=== PATIENT | male | born 1965 | race Caucasian/White ===

== ENCOUNTER 2020-04-07 10:44 | Outpatient (CLI) | payer OTHER, SELFPAY ==
--- NOTE | ~2020-04-07 | XR_ITS ---
XR lumbar spine 2-3V 04/07/2020 11:13 Indication: Low back pain Procedure: 3 views lumbar spine Comparison: No prior studies for comparison. Findings: There is disc narrowing at L5-S1. Vertebral body heights are maintained. There are facet de generative changes at L5-S1. Pedicles intact. Impression: 1: Mild lumbar spondylosis. Reviewed, dictated and finalized at location B. [employer] MEDICAL DIRECTOR Impression: 1: Mild lumbar spondylosis.
== END 2020-04-07 10:45 | disposition home or self-care (01) ==
PROVIDERS: PCP Internal Medicine; Visit Provider Internal Medicine
DX: M47.817 Spondylosis without myelopathy or radiculopathy, lumbosacral region (principal)
CPT/HCPCS: 72100

== ENCOUNTER 2022-05-29 08:00 | Outpatient (NON) | payer OTHER, SELFPAY | END 2022-05-29 08:01 | disposition home or self-care (01) | LOC: ANHLAB 05-30 08:15 | PROVIDERS: PCP Internal Medicine; Visit Provider Internal Medicine Gastroenterology | DX: Z12.11 Encounter for screening for malignant neoplasm of colon (principal) | CPT/HCPCS: 88305 ==

== ENCOUNTER 2022-05-29 10:57 | Day surgery (SDC) | payer OTHER, SELFPAY ==
[2022-03-27 08:14] VITALS: BMI 37.2
[2022-05-21 14:31] VITALS: BMI 37.8
--- NOTE | 2022-05-29 09:36 | P.PNAN_ITS ---
Anes - Initial Pre Proc Eval Procedure: Operation Date: 05/29/22 13:00 Proposed Procedures p Screening Colonoscopy - Jony Kimbrough MD Date/Time: 05/29/22 09:36 Surgeon: Jony Kimbrough MD Pre Op Diagnosis: Neoplasm Screening Patient Data Age: 57 Gender: M Height: 1.73 m Weight: 113 kg Allergies Allergy/AdvReac Type Severity Reaction Status Date / Time No Known Allergies Allergy Verified 05/29/22 11:42 Home Medications Medication Instructions Recorded Confirmed Type tadalafil 20 mg tablet (Cialis) 20 mg PO DAILY PRN sexual activity 09/30/19 05/29/22 Rx #90 tabs testosterone 20.25 mg/1.25 gram 2 pump topical DAILY #225 grams 12/14/21 05/29/22 Rx (1.62 %) transdermal gel pump aspirin 81 mg tablet,delayed 81 mg PO DAILY 02/28/22 05/29/22 History release (Adult Low Dose Aspirin) empagliflozin 10 mg-linagliptin 5 See Rx Instructions .Route 04/30/22 05/29/22 Rx mg tablet (Glyxambi) .COMPLEX #90 tabs losartan 100 See Rx Instructions .Route 05/01/22 05/29/22 Rx mg-hydrochlorothiazide 25 mg tablet .COMPLEX #90 tabs Patient hx anesthesia problems: none Family hx anesthesia problems: none Results Review: All pre-operative results and documents have been reviewed as part of the pre- operative evaluation. [facility] Past Medical History Medical History (Updated 05/29/22 @ 09:37 by Fan Ceja MD) Benign essential hypertension Controlled type 2 diabetes mellitus without complication Obesity ULICES (obstructive sleep apnea) Family History Family History Mother Family history of diabetes mellitus in first degree relative Grandparent Family history of emphysema Social History Social History Smoking status: Current every day smoker Tobacco type: e-cigarettes/vaping Alcohol intake: current Substance use: never Substance use type: does not use Living arrangements: with family Spiritual care concerns: No Anes - Eval Final PreProcedure Day of Procedure 05/29/22 09:36 Patient weight: obese Heart: regular rate and rhythm Lungs: clear to auscultation and normal air movement Airway: Mallampati scale class II Neurological: alert and oriented Last oral intake: >/= 8 hours ASA classification: III Emergent: no Anesthetic plan: proceed Anesthesia type and monitoring: general GIVS Results Review: All pre-operative results and documents have been reviewed as part of the pre- operative evaluation. Informed Consent: The patient's anesthetic plan and its attendant risks and benefits were discussed with the patient/family/POA. Questions were solicited and answers provided to the satisfaction of the patient/family/POA.
[2022-05-29 11:35] VITALS: BP 128/100; PULSE 88; RESP 16; TEMP 36.4; O2SAT 97
[2022-05-29 11:53] LABS: Glucose Point of Care 130 mg/dl (65-105)
[2022-05-29] MEDS: LACTATED RINGERS 1,000 ML 150 ML IV CONT (12:00)
--- NOTE | 2022-05-29 12:17 | PM.HPGS ---
History of Present Illness History of Present Illness Consent: Risks, benefits, and alternatives have been discussed and questions answered. Patient agrees to proceed with procedure. Chief complaint: Neoplasm Screening Narrative: Jason Carrasco is a 57 year old male here for first screening colonoscopy Review of Systems Constitutional: Constitutional: Denies headache(s) and Denies weakness Eyes: Eyes: Denies blurry vision ENT: Reports Normal hearing present, Denies headache(s) and Denies neck pain Cardiovascular: Cardiovascular: Denies chest pain and Denies dyspnea Respiratory: Respiratory: Denies dyspnea Gastrointestinal: Gastrointestinal: Reports no additional gastrointestinal complaints Genitourinary: Genitourinary: Denies dysuria Musculoskeletal: Musculoskeletal: Denies neck pain Integumentary/Breasts: Skin/Breast: Denies dry skin Neurologic: Reports Normal hearing present, Denies headache(s) and Denies weakness Psychiatric: Psychiatric: Denies anxiety Endocrine: Endocrine: Denies change in body appearance Hematologic/Lymphatic: Hematologic/Lymphatic: Denies easy bleeding Allergic/Immunologic: Allergic/Immunologic: Denies urticaria PMF Past Medical History Medical History (Updated 05/29/22 @ 09:37 by Fan Ceja MD) Benign essential hypertension Controlled type 2 diabetes mellitus without complication Obesity ULICES (obstructive sleep apnea) Family History Family History Mother Family history of diabetes mellitus in first degree relative Grandparent Family history of emphysema Social History Social History Smoking status: Current every day smoker Tobacco type: e-cigarettes/vaping Alcohol intake: current Substance use: never Substance use type: does not use Living arrangements: with family Spiritual care concerns: No Meds Home Medications and Allergies Home Medications Medication Instructions Recorded Confirmed Type tadalafil 20 mg tablet (Cialis) 20 mg PO DAILY PRN sexual activity 09/30/19 05/29/22 Rx #90 tabs testosterone 20.25 mg/1.25 gram 2 pump topical DAILY #225 grams 12/14/21 05/29/22 Rx (1.62 %) transdermal gel pump aspirin 81 mg tablet,delayed 81 mg PO DAILY 02/28/22 05/29/22 History release (Adult Low Dose Aspirin) empagliflozin 10 mg-linagliptin 5 See Rx Instructions .Route 04/30/22 05/29/22 Rx mg tablet (Glyxambi) .COMPLEX #90 tabs losartan 100 See Rx Instructions .Route 05/01/22 05/29/22 Rx mg-hydrochlorothiazide 25 mg tablet .COMPLEX #90 tabs Allergies Allergy/AdvReac Type Severity Reaction Status Date / Time No Known Allergies Allergy Verified 05/29/22 11:42 Vital Signs Vital Signs - 24 hr 05/29/22 11:35 Temperature 97.5 F L Pulse Rate 88 Respiratory Rate 16 Blood Pressure 128/100 H Pulse Oximetry 97 Oxygen Delivery Room Air Exam Const: General: comfortable and no acute distress HENMT: Face/Nose/Sinus: Normal nares present Eyes: General: appearance normal, both eyes and all related structures Neck: Neck: no JVD Resp: Auscultation: clear to auscultation bilaterally Cardio: Rate: regular rate Rhythm: regular rhythm GI: Inspection: non-distended GI Palp: Yes Soft to palpation Skin: General skin exam: normal color Neuro: General: gait normal Speech: normal speech Extrem: General: normal to inspection Psych: Mental Status: mental status grossly normal Assessment and Plan Assessment and plan (1) Screening for colon cancer: Code(s): Z12.11 - Encounter for screening for malignant neoplasm of colon Status: Acute Assessment and Plan: colonoscopy
[2022-05-29 12:40] VITALS: BP 104/66; PULSE 90; RESP 20; O2SAT 97
[2022-05-29 12:50] VITALS: BP 103/60; PULSE 83; RESP 18; O2SAT 97
--- NOTE | 2022-05-29 12:58 | SUR.PHASEII ---
PT AWAKE AND ALERT. EATING AND DRINKING. TEXTING WITH SPOUSE. SHE IS ON HER WAY BACK TO [facility]. PT DENIES PAIN.
[2022-05-29 13:00] VITALS: BP 113/70; PULSE 82; RESP 18; O2SAT 98
--- NOTE | 2022-05-29 13:52 | WPDANESPN ---
Anes - Prog Note Post-Op Date/Time: 05/29/22 13:52 Cardiovascular status: normal Respiratory status: normal Airway patency: baseline Mental status: baseline Post-Op hydration status: normal Vital Signs: Last Vital Signs Temp 36.4 C L 05/29/22 11:35 Pulse 82 05/29/22 13:00 Resp 18 05/29/22 13:00 BP 113/70 05/29/22 13:00 Pulse Ox 98 05/29/22 13:00 O2 Del Method Room Air 05/29/22 13:00 Pain Score (VAS): 0 I/O: Intake & Output 05/28/22 05/29/22 05/29/22 23:59 07:59 15:59 Intake Total 350 Balance 350 05/29/22 11:51 POC Capillary Glucose 130 H Post-procedural complaints: none Patient Feedback: Patient satisfied with anesthetic care.
== END 2022-05-29 13:14 | disposition home or self-care (01) ==
PROVIDERS: PCP Internal Medicine; Visit Provider Internal Medicine Gastroenterology
PROC: 0DJD8ZZ Inspection of Lower Intestinal Tract, Via Natural or Artificial Opening Endoscopic (ICD-10-PCS; CPT 45378; principal; 2022-05-29 13:00)
DX: Z12.11 Encounter for screening for malignant neoplasm of colon (principal)
CPT/HCPCS: 45385

== ENCOUNTER 2023-03-24 01:35 | Day surgery (SDC) | payer OTHER, SELFPAY ==
[2023-03-10 11:42] VITALS: BMI 36.5
--- NOTE | 2023-03-21 10:49 | SUR.PREOP ---
Patient called regarding upcoming procedure. Reviewed preop instructions, appointment times, and procedure prep.
[2023-03-24 08:50] LABS: Glucose Point of Care 121 mg/dl (65-105)
[2023-03-24 08:51] VITALS: BP 115/80; PULSE 77; RESP 18; TEMP 36.7; O2SAT 99; BMI 36.5
[2023-03-24] MEDS: LACTATED RINGERS 1,000 ML 150 ML IV CONT (09:03)
--- NOTE | 2023-03-24 09:41 | PM.HPGS ---
History of Present Illness History of Present Illness Consent: Risks, benefits, and alternatives have been discussed and questions answered. Patient agrees to proceed with procedure. Chief complaint: dysphagia Narrative: Jason Carrasco is a 57 year old male with dysphagia- few occasions feeling food is getting stuck, several times ago had to call 911 but eventually passed down. Never had egd Review of Systems Constitutional: Constitutional: Denies headache(s) and Denies weakness Eyes: Eyes: Denies blurry vision ENT: Reports Normal hearing present, Denies headache(s) and Denies neck pain Cardiovascular: Cardiovascular: Denies chest pain and Denies dyspnea Respiratory: Respiratory: Denies dyspnea Gastrointestinal: Gastrointestinal: Reports no additional gastrointestinal complaints Genitourinary: Genitourinary: Denies dysuria Musculoskeletal: Musculoskeletal: Denies neck pain Integumentary/Breasts: Skin/Breast: Denies dry skin Neurologic: Reports Normal hearing present, Denies headache(s) and Denies weakness Psychiatric: Psychiatric: Denies anxiety Endocrine: Endocrine: Denies change in body appearance Hematologic/Lymphatic: Hematologic/Lymphatic: Denies easy bleeding Allergic/Immunologic: Allergic/Immunologic: Denies urticaria PMFSH Past Medical History Medical History Benign essential hypertension Controlled type 2 diabetes mellitus without complication Obesity ULICES (obstructive sleep apnea) Family History Family History Mother Family history of diabetes mellitus in first degree relative Grandparent Family history of emphysema Social History Social History Smoking status: Current every day smoker Tobacco type: e-cigarettes/vaping Additional smoking assessment comments: Smoked Alcohol intake: current Drinks per week: 5 Alcohol use details: occasional beer Substance use: never Substance use type: does not use Living arrangements: other Additional living arrangements comments: With sp Spiritual care concerns: No Meds Home Medications and Allergies Home Medications Medication Instructions Recorded Confirmed Type tadalafil 20 mg tablet (Cialis) 20 mg PO DAILY PRN sexual activity 09/30/19 03/24/23 Rx #90 tabs testosterone 2 pump topical DAILY #225 grams 12/14/21 03/24/23 Rx aspirin 81 mg tablet,delayed 81 mg PO DAILY 02/28/22 03/24/23 History release (Adult Low Dose Aspirin) empagliflozin 10 mg-linagliptin 5 See Rx Instructions .Route 04/30/22 03/24/23 Rx mg tablet (Glyxambi) .COMPLEX #90 tabs losartan 100 See Rx Instructions .Route 05/01/22 03/24/23 Rx mg-hydrochlorothiazide 25 mg tablet .COMPLEX #90 tabs escitalopram oxalate 10 mg tablet 10 mg PO DAILY #30 tabs 03/13/23 03/24/23 Rx Allergies Allergy/AdvReac Type Severity Reaction Status Date / Time No Known Allergies Allergy Verified 03/24/23 08:49 Vital Signs Vital Signs - 24 hr 03/24/23 08:51 Temperature 98.0 F Pulse Rate 77 Respiratory Rate 18 Blood Pressure 115/80 Pulse Oximetry 99 Oxygen Delivery Room Air Exam Const: General: comfortable and no acute distress HENMT: Face/Nose/Sinus: Normal nares present Eyes: General: appearance normal, both eyes and all related structures Neck: Neck: no JVD Resp: Auscultation: clear to auscultation bilaterally Cardio: Rate: regular rate Rhythm: regular rhythm GI: Inspection: non-distended GI Palp: Yes Soft to palpation Skin: General skin exam: normal color Neuro: General: gait normal Speech: normal speech Extrem: General: normal to inspection Psych: Mental Status: mental status grossly normal Assessment and Plan Assessment and plan (1) Dysphagia: Code(s): R13.10 - Dysphagia, unspecified Status: Acute Assessment and Plan:
--- NOTE | 2023-03-24 09:44 | WPDANESEPPF ---
Anes - Initial Pre Proc Eval Procedure: Operation Date: 03/24/23 10:00 Proposed Procedures p Esophagogastroduodenoscopy - Jony Kimbrough MD Date/Time: 03/24/23 09:44 Surgeon: Jony Kimbrough MD Pre Op Diagnosis: dysphagia Patient Data Age: 57 Gender: M Height: 1.73 m Weight: 109 kg Last Vital Signs Temp 98.0 F 03/24/23 08:51 Pulse 77 03/24/23 08:51 Resp 18 03/24/23 08:51 BP 115/80 03/24/23 08:51 Pulse Ox 99 03/24/23 08:51 O2 Del Method Room Air 03/24/23 08:51 Allergies Allergy/AdvReac Type Severity Reaction Status Date / Time No Known Allergies Allergy Verified 03/24/23 08:49 Home Medications Medication Instructions Recorded Confirmed Type tadalafil 20 mg tablet (Cialis) 20 mg PO DAILY PRN sexual activity 09/30/19 03/24/23 Rx #90 tabs testosterone 2 pump topical DAILY #225 grams 12/14/21 03/24/23 Rx aspirin 81 mg tablet,delayed 81 mg PO DAILY 02/28/22 03/24/23 History release (Adult Low Dose Aspirin) empagliflozin 10 mg-linagliptin 5 See Rx Instructions .Route 04/30/22 03/24/23 Rx mg tablet (Glyxambi) .COMPLEX #90 tabs losartan 100 See Rx Instructions .Route 05/01/22 03/24/23 Rx mg-hydrochlorothiazide 25 mg tablet .COMPLEX #90 tabs escitalopram oxalate 10 mg tablet 10 mg PO DAILY #30 tabs 03/13/23 03/24/23 Rx Laboratory Tests 03/24/23 08:47 POC Capillary Glucose 121 H mg/dl (65-105) Patient hx anesthesia problems: none Family hx anesthesia problems: none Results Review: All pre-operative results and documents have been reviewed as part of the pre-operative evaluation. [facility] Past Medical History Medical History Benign essential hypertension Controlled type 2 diabetes mellitus without complication Obesity ULICES (obstructive sleep apnea) Family History Family History Mother Family history of diabetes mellitus in first degree relative Grandparent Family history of emphysema Social History Social History Smoking status: Current every day smoker Tobacco type: e-cigarettes/vaping Additional smoking assessment comments: Smoked Alcohol intake: current Drinks per week: 5 Alcohol use details: occasional beer Substance use: never Substance use type: does not use Living arrangements: other Additional living arrangements comments: With sp Spiritual care concerns: No Anes - Eval Final PreProcedure Day of Procedure 03/24/23 09:44 Patient weight: obese Heart: regular rate and rhythm Lungs: clear to auscultation Airway: Mallampati scale class II Neurological: alert and oriented Last oral intake: >/= 8 hours ASA classification: III Emergent: no Anesthetic plan: proceed Anesthesia type and monitoring: general GIVS and standard monitoring Results Review: All pre-operative results and documents have been reviewed as part of the pre-operative evaluation. Informed Consent: The patient's anesthetic plan and its attendant risks and benefits were discussed with the patient/family/POA. Questions were solicited and answers provided to the satisfaction of the patient/family/POA.
[2023-03-24 09:57] VITALS: BP 103/85; PULSE 88; RESP 19; O2SAT 98
--- NOTE | 2023-03-24 10:02 | WPDANESEPPF ---
Anes - Initial Pre Proc Eval Procedure: Operation Date: 03/24/23 10:00 Proposed Procedures p Esophagogastroduodenoscopy - Jony Kimbrough MD Date/Time: 03/24/23 10:02 Surgeon: Jony Kimbrough MD Pre Op Diagnosis: dysphagia Patient Data Age: 57 Gender: M Height: 1.73 m Weight: 109 kg Last Vital Signs Temp 98.0 F 03/24/23 08:51 Pulse 77 03/24/23 08:51 Resp 18 03/24/23 08:51 BP 115/80 03/24/23 08:51 Pulse Ox 99 03/24/23 08:51 O2 Del Method Room Air 03/24/23 08:51 Allergies Allergy/AdvReac Type Severity Reaction Status Date / Time No Known Allergies Allergy Verified 03/24/23 08:49 Home Medications Medication Instructions Recorded Confirmed Type tadalafil 20 mg tablet (Cialis) 20 mg PO DAILY PRN sexual activity 09/30/19 03/24/23 Rx #90 tabs testosterone 2 pump topical DAILY #225 grams 12/14/21 03/24/23 Rx aspirin 81 mg tablet,delayed 81 mg PO DAILY 02/28/22 03/24/23 History release (Adult Low Dose Aspirin) empagliflozin 10 mg-linagliptin 5 See Rx Instructions .Route 04/30/22 03/24/23 Rx mg tablet (Glyxambi) .COMPLEX #90 tabs losartan 100 See Rx Instructions .Route 05/01/22 03/24/23 Rx mg-hydrochlorothiazide 25 mg tablet .COMPLEX #90 tabs escitalopram oxalate 10 mg tablet 10 mg PO DAILY #30 tabs 03/13/23 03/24/23 Rx Laboratory Tests 03/24/23 08:47 POC Capillary Glucose 121 H mg/dl (65-105) Patient hx anesthesia problems: none Family hx anesthesia problems: none Results Review: All pre-operative results and documents have been reviewed as part of the pre-operative evaluation. [facility] Past Medical History Medical History Benign essential hypertension Controlled type 2 diabetes mellitus without complication Obesity ULICES (obstructive sleep apnea) Family History Family History Mother Family history of diabetes mellitus in first degree relative Grandparent Family history of emphysema Social History Social History Smoking status: Current every day smoker Tobacco type: e-cigarettes/vaping Additional smoking assessment comments: Smoked Alcohol intake: current Drinks per week: 5 Alcohol use details: occasional beer Substance use: never Substance use type: does not use Living arrangements: other Additional living arrangements comments: With sp Spiritual care concerns: No Anes - Eval Final PreProcedure Day of Procedure 03/24/23 10:02 Patient weight: obese Heart: regular rate and rhythm Lungs: clear to auscultation Airway: Mallampati scale class II Neurological: alert and oriented Last oral intake: >/= 8 hours ASA classification: III Emergent: no Anesthetic plan: proceed Anesthesia type and monitoring: general GIVS and standard monitoring Results Review: All pre-operative results and documents have been reviewed as part of the pre-operative evaluation. Informed Consent: The patient's anesthetic plan and its attendant risks and benefits were discussed with the patient/family/POA. Questions were solicited and answers provided to the satisfaction of the patient/family/POA.
[2023-03-24 10:07] VITALS: BP 111/75; PULSE 82; RESP 20; O2SAT 95
[2023-03-24 10:17] VITALS: BP 113/75; PULSE 81; RESP 18; O2SAT 95
== END 2023-03-24 10:26 | disposition home or self-care (01) ==
PROVIDERS: PCP Nurse Practitioner; Visit Provider Internal Medicine Gastroenterology
PROC: 0DJ08ZZ Inspection of Upper Intestinal Tract, Via Natural or Artificial Opening Endoscopic (ICD-10-PCS; CPT 43235; principal; 2023-03-24 10:00)
DX: K29.50 Unspecified chronic gastritis without bleeding (principal); K22.2 Esophageal obstruction; K44.9 Diaphragmatic hernia without obstruction or gangrene; I10 Essential (primary) hypertension; E11.9 Type 2 diabetes mellitus without complications; G47.33 Obstructive sleep apnea (adult) (pediatric); F17.290 Nicotine dependence, other tobacco product, uncomplicated; Z79.82 Long term (current) use of aspirin; E66.9 Obesity, unspecified; Z68.36 Body mass index [BMI] 36.0-36.9, adult
CPT/HCPCS: 43249; 43239; 82948; 88305; C1726; J2704; J7120

== ENCOUNTER 2023-09-14 10:05 | Emergency (ER) | payer OTHER, SELFPAY ==
--- NOTE | 2023-09-14 10:10 | ED.GENADULT ---
HPI - General Adult General Chief complaint: Skin/Abscess/Foreign Body Stated complaint: Poison Gabriella Time Seen by Provider: 09/14/23 10:10 Source: patient, RN notes reviewed and old records reviewed Mode of arrival: ambulatory Limitations: no limitations History of Present Illness HPI narrative: 58-year-old man to [facility] with complaint of diffuse rash on bilateral arms, abdomen, anterior neck, bilateral lower extremities for 5 days. Patient endorses potential exposure to poison sumac. Patient has been attempting to treat at home with Benadryl and calamine lotion with little relief. Patient endorses history of diabetes, hypertension and states he is currently being treated for cellulitis of left arm. patient denies rash to face, swelling mouth, shortness of breath, cough. Related Data Home Medications Medication Instructions Recorded Confirmed aspirin 81 mg tablet,delayed 81 mg PO DAILY 02/28/22 09/14/23 release (Adult Low Dose Aspirin) cephalexin 500 mg capsule 500 mg PO Q8H 09/14/23 09/14/23 empagliflozin 10 mg-linagliptin 5 1 tablet PO DAILY 09/14/23 09/14/23 mg tablet (Glyxambi) Allergies Allergy/AdvReac Type Severity Reaction Status Date / Time No Known Allergies Allergy Verified 09/14/23 10:27 Review of Systems Review of Systems: All systems reviewed & are unremarkable except as noted in HPI and below Constitutional: Constitutional: Reports no additional constitutional complaints Eyes: Eyes: Reports no additional eye complaints ENT: Reports system reviewed and no additional complaints, except as documented Cardiovascular: Cardiovascular: Reports no additional cardiovascular complaints, Denies chest pain and Denies dyspnea Respiratory: Respiratory: Reports no additional respiratory complaints, Denies cough and Denies dyspnea Musculoskeletal: Musculoskeletal: Reports no additional musculoskeletal complaints Integumentary/Breasts: Skin/Breast: Reports rash Neurologic: Reports system reviewed and no additional complaints, except as documented Psychiatric: Psychiatric: Reports no additional psychiatric complaints [facility] Past Medical History Medical History Benign essential hypertension Controlled type 2 diabetes mellitus without complication Obesity ULICES (obstructive sleep apnea) Family History Family History Mother Family history of diabetes mellitus in first degree relative Grandparent Family history of emphysema Social History Social History Smoking status: Current every day smoker Tobacco type: e-cigarettes/vaping Additional smoking assessment comments: Smoked Alcohol intake: current Drinks per week: 5 Alcohol use details: occasional beer Substance use: never Substance use type: does not use Living arrangements: other Additional living arrangements comments: With sp Spiritual care concerns: No Comments At the time of my signature, I reviewed and agree with the nursing past medical, surgical, social, and family history. There is no relevant family history pertinent to the patient complaint. Exam Const: General: cooperative, no acute distress, alert, uncomfortable, well groomed and well nourished Nutritional Appearance: well nourished Orientation/consciousness: patient oriented x3 Limitations: no limitations HENMT: Head: normal to inspection Ears: external ears normal Face/Nose/Sinus: Normal external nose present, Normal nares present, normal facial exam, No erythema and No edema Face and sinus: normal facial exam, no erythema and no edema Mouth: Yes Normal oral and palatal mucosa present Eyes: General: appearance normal, both eyes and all related structures Neck: Neck: normal visual inspection, full ROM and no meningeal signs Lymphatic: no lymphadenopathy noted and no l
[2023-09-14 10:12] VITALS: BP 134/85; PULSE 94; RESP 16; TEMP 36.4; O2SAT 97
== END 2023-09-14 10:47 | disposition home or self-care (01) ==
PROVIDERS: Emergency Provider Nurse Practitioner Family
DX: L25.9 Unspecified contact dermatitis, unspecified cause (principal); F17.290 Nicotine dependence, other tobacco product, uncomplicated; I10 Essential (primary) hypertension; E11.9 Type 2 diabetes mellitus without complications; E66.9 Obesity, unspecified; Z68.37 Body mass index [BMI] 37.0-37.9, adult; Z79.82 Long term (current) use of aspirin
CPT/HCPCS: 99213; G0463

== ENCOUNTER 2024-06-21 15:22 | Outpatient (CLI) | payer OTHER, SELFPAY ==
--- NOTE | ~2024-06-21 | XR_ITS ---
EXAM: XR knee RT 3V DATE: 06/21/2024 15:52 HISTORY: M25.569 - Pain in RIGHT knee X 5 DYS, NO INJ . COMPARISON: None available. FINDINGS: Normal mineralization. No fracture or dislocation. No lytic or blastic lesion. Moderate me dial joint space narrowing. Mild tricompartmental osteophytosis. Large quadriceps and moderate patell ar enthesophytes, with enthesophyte fractures. Trace right knee joint fluid. No erosion or periosteal change. Soft tissues within normal limits. IMPRESSION: Tricompartmental right knee osteoarthritis, moderate in the medial compartment. Quadricep s and patellar enthesopathy. Reviewed, dictated and finalized at location [facility] [employer] IMPRESSION: Tricompartmental right knee osteoarthritis, moderate in the medial compartment. Quadriceps and patellar enthesopathy.
--- OUTSIDE RECORDS SUMMARY | 2024-06-21 18:04 | XMS_ITS | Referral Summary ---
Author Organization [facility] [place] Address [address] [place] [address] Care Team Providers Care [employer] Sewer Name Role Phone Ryan Pierre DO Primary Care Provider [phone] Allergies No known active allergies Medications Glyxambi 10-5 mg tablet 08/17/2021 Active losartan-hydroch lorothiazide (HYZAAR) 100-25 mg per tablet 08/17/2021 Activ e aspirin 81 mg enteric coated tablet Take 81 mg by mouth daily Active docosahexaenoic acid/epa (FISH OIL ORAL) Take by mouth Active Active Problems No known active problems Social History Tobacco Use Types Packs/Day Years Used Date Smoking Tobacco: Every Day Vaping Smokeless Tobacco: Never Personal Safety Answer Date Recorded Getting School Help Needed Not on file 07/02 Sex and Gender Information Value Date Recorded Sex Assigned at Not on file Legal Sex Male 11:33 PM [employer] Gender Identity Not on file Sexual Orientation Not on file Last Filed Vital Signs Vital Sign Reading Time Taken Comments Blood Pressure 126/80 04/21/2022 11:48 AM [employer] Pulse 84 04/21/2022 11:48 AM [employer] Temperature 36.3 C (97.4 F) 04/21/2022 11:48 AM [employer]ST MAKER Respiratory Rate 18 04/21/2022 11:48 AM MAST MAKER Oxygen Saturation 97% 04/21/2022 11:48 AM MAST MAKER Inhaled Oxygen Concentration - - Weight 111.1 kg (245 lb) 04/21/2022 11:48 AM MAST MAKER Height 172.7 cm (5' 8 ) 04/21/2022 11:48 AM MAST MAKER Body Mass Index 37.25 04/21/2022 11:48 AM MAST MAKER Plan of Treatment Not on file Insurance [facility] CHOICE PLUS [facility] CHOICE PLUS Care Teams [employer] Co[employer]er Relationship Specialty Start Date End Date Ryan Pierre DO PCP - General Internal Medicine 10/18/21
--- OUTSIDE RECORDS SUMMARY | 2024-06-21 18:04 | XMS_ITS | Clinical Summary ---
Author Organization [facility] [address] [facility] lto Address [address] [place] [address] Care Team Providers Care Neurosurgeon Name Role Phone Ryan Pierre DO Primary Care Provider [phone] Allergies No known active allergies Medications Glyxambi 10-5 mg tablet 08/17/2021 Active losartan-hydroch lorothiazide (HYZAAR) 100-25 mg per tablet 08/17/2021 Activ e aspirin 81 mg enteric coated tablet Take 81 mg by mouth daily Active docosahexaenoic acid/epa (FISH OIL ORAL) Take by mouth Active Active Problems No known active problems Surgical History Surgery Date Site/Laterality Comments NO PAST SURGERIES Medical History Medical History Date Comments Diabetes (HCC) Hypertension Family History Medical History Relation Name Comments No Known Problems Father Diabetes Mother Relation Name Status Comments Father Alive Mother Alive Social History Tobacco Use Types Packs/Day Years Used Date Smoking Tobacco: Every Day Vaping Smokeless Tobacco: Never Personal Safety Answer Date Recorded Getting School Help Needed Not on file 07/02 Sex and Gender Information Value Date Recorded Sex Assigned at Not on file Legal Sex Male 11:33 PM [employer] Gender Identity Not on file Sexual Orientation Not on file Obstetrics History Last Filed Vital Signs Vital Sign Reading Time Taken Comments Blood Pressure 126/80 04/21/2022 11:48 AM [employer] [facility] Pulse 84 04/21/2022 11:48 AM [employer] Temperature 36.3 C (97.4 F) 04/21/2022 11:48 AM [employer] Respiratory Rate 18 04/21/2022 11:48 AM [employer] Oxygen Saturation 97% 04/21/2022 11:48 AM [employer] Inhaled Oxygen Concentration - - Weight 111.1 kg (245 lb) 04/21/2022 11:48 AM [employer] Height 172.7 cm (5' 8 ) 04/21/2022 11:48 AM [employer] Body Mass Index 37.25 04/21/2022 11:48 AM [employer] H[employer] Plan of Treatment Health Maintenance Due Date Last Done Comments Colon Cancer Screening-Colonoscopy 1966 Depression Screening 1966 Hepatitis C Screening 1966 Prostate Cancer Screening-PSA 1966 Pneumococcal vaccine <65 (1 of 2 - PCV) 1972 DTaP/Tdap/Td Vaccine (1 - Tdap) 1977 Hepatitis B Screening 1984 Regular Well Visit/Exam 18-64 1984 Zoster Vaccine (1 of 2) 2016 Covid-19 Vaccine (3 - season) 01/04/202409/2021, 07/11/2020 Influenza Vaccine (#1) 2024 Insurance [facility] Care Teams Neurosurgeon Relationship Specialty Start Date End Date Ryan Pierre DO PCP - General Internal Medicine 10/18/21
== END 2024-06-21 15:23 | disposition home or self-care (01) ==
PROVIDERS: PCP Internal Medicine; Visit Provider Nurse Practitioner
DX: M17.11 Unilateral primary osteoarthritis, right knee (principal)
CPT/HCPCS: 73562